=== PATIENT | male | born 1965 | race Caucasian/White ===

== ENCOUNTER 2018-03-25 21:07 | Emergency (ER) | payer OTHER ==
[~2018-03-25] VITALS: Ht 172.7 cm; Wt 72.6 kg
[~2018-03-25 21:07] MED LIST: IBUP600 PO; MECL25 PO; Robaxin-750750 MG PO
[2018-03-25] MEDS ORDERED: Hydrocodone-Ap1 EA23 PO (21:43)
[2018-03-25] MEDS ORDERED: Cyclobenzaprine5 MG PO (21:44)
[2018-03-25] MEDS ORDERED: IBUP800 PO (21:44)
[2018-03-25] MEDS ORDERED: LIDO700A20 TOP (22:18)
[2018-03-25] MEDS ORDERED: KETO10 PO (22:18)
== END 2018-03-25 22:30 | disposition home or self-care (01) ==
LOC: ER 21:07
DX: M54.42 Lumbago with sciatica, left side (principal); G89.29 Other chronic pain; Z79.899 Other long term (current) drug therapy; Z87.891 Personal history of nicotine dependence
CPT/HCPCS: 96372; 99282-25; J1885

== ENCOUNTER 2018-05-07 00:55 | Emergency (ER) | payer OTHER ==
[~2018-05-07] VITALS: Ht 172.7 cm; Wt 72.6 kg
[~2018-05-07 00:55] MED LIST changes: +Cyclobenzaprine5 MG PO; +Hydrocodone-Ap1 EA23 PO; +IBUP800 PO; +KETO10 PO; +LIDO700A20 TOP
[2018-05-07 03:20] LABS: Calcium, Ionized (POC) 1.12 mmol/L (1.10-1.46); Chloride (POC) 95 mmol/L (98-108); Creatinine (POC) 0.9 mg/dL (0.8-1.3); Glucose (ISTAT POC) 136 mg/dL (70-99); Hemoglobin (POC) 12.6 g/dL (13.5-17.5); Potassium (POC) 3.3 mmol/L (3.5-5.5); Sodium (POC) 137 mmol/L (135-148); Total CO2 (POC) 27 mmol/L (21-32)
== END 2018-05-07 04:14 | disposition home or self-care (01) ==
LOC: ER 00:55
PROVIDERS: Emergency Medicine
DX: R10.9 Unspecified abdominal pain (principal); Z87.891 Personal history of nicotine dependence
CPT/HCPCS: 36415; 74018; 80047; 85014; 99284-25

== ENCOUNTER 2018-05-07 07:27 | Day surgery (SDC) | payer OTHER ==
--- NOTE | 2018-05-07 08:05 | NUR ---
05/07/18 0805 Lorenza Mendez LATE ENTRY FOR TODAY AT 0745 [facility]. PATIENT BROUGHT BACK TO SDU AND IV ADMINISTERED. DR. YU CONTACTED AND ORDERS RECEIVED FOR ZOFRAN 4MG IV.
== END 2018-05-07 10:15 | disposition home or self-care (01) ==
LOC: ORSCSDS 07:27
DX: R10.32 Left lower quadrant pain (principal); Z53.9 Procedure and treatment not carried out, unspecified reason; K92.1 Melena
CPT/HCPCS: J0500; J2405; J2550; J7120

== ENCOUNTER 2018-06-18 10:47 | Day surgery (SDC) | payer OTHER ==
[~2018-06-18] VITALS: Ht 165.1 cm; Wt 68.0 kg
[~2018-06-18 10:47] MED LIST changes: +Bentyl20 MG PO; +CYCL10 PO; +ONDA4ODT
[2018-06-18] MEDS ORDERED: PRED1 (11:22)
--- NOTE | 2018-06-18 13:37 | NUR ---
06/18/18 Cierra Sanchez V PT IS WAITING FOR FURTHER INFORMATION FROM DR. YU REGUARDING THE MASS DISCOVERED DURING THE PROCEDURE. PT'S VSS BUT PER DR. YU'S ORDERS, PT TO REMAIN NPO AND IV IN PLACE UNTIL FURTHER NOTICE. PT IS RESTING COMFORTABLY IN BED, SIDE RAILS IN PLACE, CALL LIGHT WITHIN REACH, AND FAMILY AT BEDSIDE.
[2018-06-19] MEDS ORDERED: ACETAMINOP-CODEI5 ML PO (10:33)
== END 2018-06-18 13:50 | disposition home or self-care (01) ==
LOC: ORSCSDS 10:47
PROVIDERS: Internal Medicine Gastroenterology
PROC: 0DBN8ZX Excision of Sigmoid Colon, Via Natural or Artificial Opening Endoscopic, Diagnostic (ICD-10-PCS; principal; 2018-06-18 12:00)
DX: K92.1 Melena (principal); R10.32 Left lower quadrant pain; D12.5 Benign neoplasm of sigmoid colon; K59.00 Constipation, unspecified; I10 Essential (primary) hypertension; Z87.891 Personal history of nicotine dependence
CPT/HCPCS: 88305; J2704; J7120

== ENCOUNTER 2018-06-19 07:30 | Inpatient (IN) | payer OTHER ==
[~2018-06-19] VITALS: Ht 174 cm; Wt 67.1 kg
[~2018-06-19 07:30] MED LIST changes: +PRED1
[2018-06-19] MEDS ORDERED: ACETAMINOP-CODEI5 ML PO (10:33)
--- NOTE | 2018-06-19 12:00 | NUR ---
"DAY SURGERY RN | ADMIT No issues on admit. Family at bedside. Both doctors and experimental mechanic RN saw patient. All interventions completed."
--- NOTE | 2018-06-19 19:51 | NUR ---
SHIFT SUMMARY PT A&OX4, VSS, S/P SIG COLECTOMY, PREVENA. PAIN MANAGED WITH EPIDURAL CONTINUOUS AND BOLUS, PT UNDERSTANDS HOW TO USE BUTTON. AISSATOU CLEAR LIQ DIET. FERRER PATENT & DRAINING, STAT LOCK ON, OFF FLOOR. PLAN IS TO HOLD LOVENOX ON SATURDAY FOR EPIDURAL REMOVAL. REPORT GIVEN TO YULIET MCLAUGHLIN.
--- NOTE | 2018-06-20 04:35 | NUR ---
SUMMARY: PT IS POD1 SIGMOID COLECTOMY. PT DID WELL OVER NIGHT. VSS THIS AM, A/O. CONTINUING Q1 HR EPIDURAL CHECKS, SEE ASSESSMENTS, Q1 HR CHECKS TO END AT 1610 TODAY. PT HAS RATED PAIN 3/10 MOST OF THE NIGHT, GIVEN TORADOL X1 WHICH PT REPORTED HELPED WITH PAIN WELL. SURGICAL SITE WNL. PT TURNS WELL IN BED. DENIES N/V. NO ACUTE SAFETY CONCERNS AT THIS TIME.
[2018-06-20 04:46] LABS: BASOPHILS ABSOLUTE AUTO 0.01 K/mm3 (0.00-0.23); BASOPHILS PERCENT AUTO 0 % (0-2); EOSINOPHILS ABSOLUTE AUTO 0.02 K/mm3 (0.00-0.68); EOSINOPHILS PERCENT AUTO 0 % (0-6); Hematocrit 30.2 % (37.0-53.0); Hemoglobin 9.6 g/dL (13.5-17.5); IMMATURE GRAN ABSOLUTE AUTO 0.07 K/mm3 (0.00-0.10); IMMATURE GRAN PERCENT AUTO 1 % (0-1); LYMPHOCYTES ABSOLUTE AUTO 1.32 K/mm3 (0.84-5.20); LYMPHOCYTES PERCENT AUTO 10 % (21-46); MONOCYTES PERCENT AUTO 8 % (4-13); Mean Corpuscular HGB 28.3 pg (26.0-34.0); Mean Corpuscular HGB Conc 31.8 g/dL (31.5-36.5); Mean Corpuscular Volume 89 fL (80-100); Mean Platelet Volume 10.8 fL (9.1-12.4); NEUTROPHILS ABSOLUTE AUTO 10.82 K/mm3 (1.96-9.15); NEUTROPHILS PERCENT AUTO 81 % (41-73); Platelet Count 225 K/mm3 (150-400); RDW Coefficient Variation 13.5 % (11.7-14.2); RDW Standard Deviation 43.9 fL (35.1-46.3); Red Blood Cell Count 3.39 M/mm3 (4.30-5.90); White Blood Cell Count 13.34 K/mm3 (4.00-11.30)
[2018-06-20 05:04] LABS: Anion Gap 7 mmol/L (6-16); Blood Urea Nitrogen 10 mg/dL (8-24); Bun/Creatinine Ratio 11.3 (12.0-20.0); CO2, Blood 26 mmol/L (21-32); Calcium, Blood 8.2 mg/dL (8.5-10.1); Chloride, Blood 102 mmol/L (98-108); Creatinine, Blood 0.88 mg/dL (0.60-1.20); Glomerular Filtration Rate >60 (60-); Glucose, Blood 112 mg/dL (70-99); Potassium, Blood 4.2 mmol/L (3.5-5.5); Sodium, Blood 135 mmol/L (136-145)
--- NOTE | 2018-06-20 09:47 | NUR ---
06/20/18 0947 Oumou Iqbal VERIFICATIONS: EDIT CHART.
--- NOTE | 2018-06-20 19:08 | NUR ---
shift summary patient pleasant. moved to q4 epidural checks until 1600 06/21/18. no needed assessments at this time. no acute concerns from the patient at this time.
--- NOTE | 2018-06-21 16:51 | NUR ---
SHIFT SUMMARY PATIENT IS PLEASANT. PASSING GAS AND HAD A BOWEL MOVEMENT THIS MORNING AROUND 0400. NO ACUTE CONCERNS FROM THE PATIENT. ACCORDING TO DR. ROSA THE PATIENT IS TO HAVE HIS EPIDURAL REMOVED TOMORROW. HIS LOVENOX SHOULD BE HELD, THERE IS ALSO A NURSE NOTIFY TO REMIND US TO HOLD HIS LOVENOX 06/23/18. WILL CONTINUE TO MONITOR FOR CHANGES, PATIENT HAS BEEN UP AND WALKED THE HALLS TODAY. PATIENT STILL RATES HIS PAIN 2/10 WITH MILD ACHING. HE IS AWARE THAT HE WILL BE GETTING HIS EPIDURAL PULLED TOMORROW.
--- NOTE | 2018-06-22 06:29 | NUR ---
POD 3 S/P COLECTOMY. PT VSS T/O NIGHT. EPIDURAL SITE WNL, LEVEL OF SENSATION T10-L1. PT REP PAIN AISSATOU 1-04/13. PT AISSATOU REG PO, DENIED N/V, IS PASSING FLATUS+SMALL BM. PT AMB W/SBA, AISSATOU WELL. PLAN TO D/C EPIDURAL THIS AM. PT USING CALL LIGHT FOR ASSISTANCE, WILL CONT TO MONITOR UNITL REP GIVEN TO ONCOMING RN.
--- NOTE | 2018-06-22 17:50 | NUR ---
SHIFT SUMMARY PT A&OX4, VSS. POD3 SIG COLECTOMY, PREVENA. EPIDURAL REMOVED AT 1000, FERRER REMOVED AT 1530, STILL AWAITING VOID. PAIN MANAGED WITH 5 MG NORCO. AISSATOU PO, DENIES N&V. PASSING FLATUS, DENIES BM THIS SHIFT. AMB W/FWW HALLWAYS, UP TO CHAIR T/O SHIFT, SHOWERED TODAY. WCTM & TX PER EMAR UNTIL REPORT GIVEN TO ONCOMING NOC RN.
--- NOTE | 2018-06-23 05:29 | NUR ---
POD 4 S/P COLECTOMY. PT VSS T/O NIGHT. PAIN MGD W/1 NORCO W/REP RELIEF. PT AISSATOU REG PO, RE PPASSING FLATUS AND BM, IS VOIDING URINE W/O DIFFICULTY. PT AMB INDEP, AISSATOU WELL. PLAN TO D/C HOME TODAY. WILL CONT TO MONITOR UNTIL REP GIVEN TO ONCOMING RN.
[2018-06-23] MEDS ORDERED: Norco 5-325 Ta1 EACH PO (11:11)
--- NOTE | 2018-06-23 12:47 | NUR ---
DISCHARGE: PT DC TO HOME AT THIS TIME WITH FAMILY. IV DC'D WNL. VERBALIZED UNDERSTANDING OF INSTRUCTIONS, FOLLOW UP, PROBLEMS TO REPORT AND MEDICATIONS. SCRIPT GIVEN. PT LEFT VIA WHEELCHAIR TO CAR WITH BELONGINGS.
== END 2018-06-23 12:40 | disposition home or self-care (01) | DRG 331 ==
LOC: SURS 08:27
PROVIDERS: ADMIT Surgery
PROC: 0DTN0ZZ Resection of Sigmoid Colon, Open Approach (ICD-10-PCS; principal; 2018-06-19 11:30)
DX: K63.9 Disease of intestine, unspecified (principal); R10.32 Left lower quadrant pain; K59.00 Constipation, unspecified; Z87.891 Personal history of nicotine dependence
CPT/HCPCS: 36415; 80048; 82378; 85025; A9270-GY; J0295; J0330; J1650; J1885; J2250; J2704; J3010; J7120; V2790

== ENCOUNTER 2018-07-14 06:03 | Day surgery (SDC) | payer OTHER ==
[~2018-07-14] VITALS: Ht 170.2 cm; Wt 68.7 kg
[~2018-07-14 06:03] MED LIST changes: +ACETAMINOP-CODEI5 ML PO; +Bentyl10 MG PO; +MIRALAX17 GM PO; +Norco 5-325 Ta1 EACH PO; +ONDA4ODT MM; +[UNRECOGNIZED DRUG - OTHER] PO
--- NOTE | 2018-07-14 06:51 | NUR ---
Ambulatory in Day Surgery. Surgical site prepped with 2% Chlorhexidine cloth wipe. History, Chart, Medications and Allergies reviewed before start of procedure. Lungs clear T/O to Auscultation. Patient confirms NPO status and agrees with scheduled surgery. Pre-Op teaching done. Pt verbalizes understanding. Patient States Post-Procedure ride home has been arranged.
--- NOTE | 2018-07-14 09:19 | NUR ---
PATIENT GAVE PERMISSION FOR ME TO CARE FOR HIM TODAY 07/14/18. Discharge instructions reviewed with patient. Patient verbalizes understanding. Copy given to patient to take home. Dressing to procedure site clean, dry, intact with no visible drainage, swelling, erythema or bruising noted. Patient States Post-Procedure ride home has been arranged. Discharged via wheelchair to private car for ride home. NOTIFIED SURGEON THAT NO PAIN MEDICATION HAD BEEN ORDERED FOR DISCHARGE. PATIENT STATES HE IS OKAY WITH TAKING CURRENT MEDICATIONS AT HOME FOR PAIN CONTROL.
--- NOTE | 2018-07-14 10:46 | NUR ---
STUDENT RN ASSISTING WITH PREOPERATIVE CARE. AGREE WITH HER CHARTING AND CARE
== END 2018-07-14 23:04 | disposition home or self-care (01) ==
LOC: ORSCMMR 06:03 → ORD 07:30 → ORSCMMR 07:30
PROVIDERS: Surgery
PROC: 05HM33Z Insertion of Infusion Device into Right Internal Jugular Vein, Percutaneous Approach (ICD-10-PCS; principal; 2018-07-14 07:30)
PROC: B5131ZA Fluoroscopy of Right Jugular Veins using Low Osmolar Contrast, Guidance (ICD-10-PCS; principal; 2018-07-14 07:30)
DX: C18.7 Malignant neoplasm of sigmoid colon (principal); Z79.899 Other long term (current) drug therapy
CPT/HCPCS: 77001; C1788; J0690; J1100; J1642; J2250; J2405; J2704; J3010; J7120

== ENCOUNTER 2019-08-11 07:10 | Day surgery (SDC) | payer OTHER ==
[~2019-08-11] VITALS: Ht 172.7 cm; Wt 70.3 kg
== END 2019-08-11 09:31 | disposition home or self-care (01) ==
LOC: ORSCSDS 07:10
PROVIDERS: Surgery
PROC: 0DJD8ZZ Inspection of Lower Intestinal Tract, Via Natural or Artificial Opening Endoscopic (ICD-10-PCS; principal; 2019-08-11 08:30)
DX: Z12.11 Encounter for screening for malignant neoplasm of colon (principal); Z85.038 Personal history of other malignant neoplasm of large intestine; Z87.891 Personal history of nicotine dependence; Z79.899 Other long term (current) drug therapy
CPT/HCPCS: J2704; J7120

== ENCOUNTER 2020-09-22 19:55 | Emergency (ER) | payer OTHER ==
[~2020-09-22] VITALS: Ht 172.7 cm; Wt 74.8 kg
[2020-09-22] MEDS ORDERED: IBU800 MG PO (20:41)
== END 2020-09-22 20:52 | disposition home or self-care (01) ==
LOC: ER 19:55
DX: S63.92XA Sprain of unspecified part of left wrist and hand, initial encounter (principal); Z79.899 Other long term (current) drug therapy; Z87.891 Personal history of nicotine dependence; W23.0XXA Caught, crushed, jammed, or pinched between moving objects, initial encounter
CPT/HCPCS: 29125; 73130; 99283-25

== ENCOUNTER 2022-12-16 05:22 | Emergency (ER) | payer OTHER ==
[~2022-12-16] VITALS: Ht 175.3 cm; Wt 74.8 kg
[~2022-12-16 05:22] MED LIST changes: +IBU800 MG PO
[2022-12-16 05:48] LABS: BASOPHILS ABSOLUTE AUTO 0.02 K/mm3 (0.00-0.23); BASOPHILS PERCENT AUTO 0 % (0-2); EOSINOPHILS ABSOLUTE AUTO 0.13 K/mm3 (0.00-0.68); EOSINOPHILS PERCENT AUTO 2 % (0-6); Hemoglobin 13.4 g/dL (13.5-17.5); IMMATURE GRAN ABSOLUTE AUTO 0.03 K/mm3 (0.00-0.10); IMMATURE GRAN PERCENT AUTO 0 % (0-1); LYMPHOCYTES ABSOLUTE AUTO 2.43 K/mm3 (0.84-5.20); LYMPHOCYTES PERCENT AUTO 29 % (21-46); MONOCYTES ABSOLUTE AUTO 0.58 K/mm3 (0.16-1.47); MONOCYTES PERCENT AUTO 7 % (4-13); Mean Corpuscular HGB 30.4 pg (26.0-34.0); Mean Corpuscular HGB Conc 34.4 g/dL (31.5-36.5); Mean Corpuscular Volume 88 fL (80-100); Mean Platelet Volume 11.3 fL (9.1-12.4); NEUTROPHILS ABSOLUTE AUTO 5.19 K/mm3 (1.96-9.15); NEUTROPHILS PERCENT AUTO 62 % (41-73); Platelet Count 216 K/mm3 (150-400); RDW Coefficient Variation 11.9 % (11.7-14.2); RDW Standard Deviation 38.5 fL (35.1-46.3); Red Blood Cell Count 4.41 M/mm3 (4.30-5.90); White Blood Cell Count 8.38 K/mm3 (4.00-11.30)
[2022-12-16 06:02] LABS: Albumin, Blood 4.1 g/dL (3.4-5.0); Albumin/Globulin Ratio 1.1 (0.8-1.8); Bilirubin, Total 0.3 mg/dL (0.1-1.0); Bun/Creatinine Ratio 16.2 (12.0-20.0); Calcium, Blood 10.2 mg/dL (8.5-10.1); Creatinine, Blood 1.17 mg/dL (0.60-1.20); Globulin, Blood 3.6 g/dL (2.2-4.0); Potassium, Blood 3.7 mmol/L (3.5-5.5); Total Protein, Blood 7.7 g/dL (6.4-8.2)
[2022-12-16] MEDS ORDERED: OMEP20ER PO (07:46)
[2022-12-16] MEDS ORDERED: MIRALAX17 GM PO (07:46)
[2022-12-16 08:00] VITALS: BP 120/66
== END 2022-12-16 08:07 | disposition home or self-care (01) ==
LOC: ER 05:22
PROVIDERS: Student in an Organized Health Care Education/Training Program
DX: K21.9 Gastro-esophageal reflux disease without esophagitis (principal); K59.00 Constipation, unspecified; Z79.899 Other long term (current) drug therapy; Z87.891 Personal history of nicotine dependence
CPT/HCPCS: 74177; 80053; 83690; 84484; 85025; 93005; 93010; 99284-25; Q9967

== ENCOUNTER 2023-10-23 16:46 | Emergency (ER) | payer OTHER ==
[~2023-10-23] VITALS: Ht 175.3 cm; Wt 69.4 kg
[2023-10-23 22:24] VITALS: BP 111/60
[2023-10-23] MEDS ORDERED: NS 1,000 ML IV SCH (22:35)
[2023-10-23] MEDS ORDERED: MIRALAX17 GM PO (22:39)
== END 2023-10-23 22:52 | disposition home or self-care (01) ==
LOC: ER 16:46
DX: R11.0 Nausea (principal); K21.9 Gastro-esophageal reflux disease without esophagitis; Z87.891 Personal history of nicotine dependence; Z91.040 Latex allergy status
CPT/HCPCS: 74177; 99284-25; Q9967

== ENCOUNTER → 2023-10-23 | Outpatient (CLI) | payer OTHER ==
[~2023-10-23] MED LIST changes: +OMEP20ER PO
[2023-10-23 15:03] LABS: BASOPHILS ABSOLUTE AUTO 0.05 K/mm3 (0.00-0.23); BASOPHILS PERCENT AUTO 0 % (0-2); EOSINOPHILS ABSOLUTE AUTO 0.05 K/mm3 (0.00-0.68); EOSINOPHILS PERCENT AUTO 0 % (0-6); Hematocrit 40.5 % (37.0-53.0); Hemoglobin 13.8 g/dL (13.5-17.5); IMMATURE GRAN ABSOLUTE AUTO 0.06 K/mm3 (0.00-0.10); IMMATURE GRAN PERCENT AUTO 0 % (0-1); LYMPHOCYTES ABSOLUTE AUTO 0.61 K/mm3 (0.84-5.20); LYMPHOCYTES PERCENT AUTO 4 % (21-46); MONOCYTES ABSOLUTE AUTO 1.37 K/mm3 (0.16-1.47); MONOCYTES PERCENT AUTO 9 % (4-13); Mean Corpuscular HGB 31.2 pg (26.0-34.0); Mean Corpuscular HGB Conc 34.1 g/dL (31.5-36.5); Mean Corpuscular Volume 91 fL (80-100); NEUTROPHILS ABSOLUTE AUTO 13.93 K/mm3 (1.96-9.15); NEUTROPHILS PERCENT AUTO 87 % (41-73); Platelet Count 192 K/mm3 (150-400); RDW Coefficient Variation 11.9 % (11.7-14.2); Red Blood Cell Count 4.43 M/mm3 (4.30-5.90); White Blood Cell Count 16.07 K/mm3 (4.00-11.30)
[2023-10-23 15:15] LABS: Albumin, Blood 3.6 g/dL (3.4-5.0); Albumin/Globulin Ratio 0.8 (0.8-1.8); Bilirubin, Total 0.5 mg/dL (0.1-1.0); Bun/Creatinine Ratio 11.6 (12.0-20.0); Creatinine, Blood 1.21 mg/dL (0.60-1.20); Globulin, Blood 4.4 g/dL (2.2-4.0); Potassium, Blood 3.8 mmol/L (3.5-5.5)
== END | disposition home or self-care (01) ==
LOC: LAB SHORT 14:57 → LAB 14:57
PROVIDERS: Physician Assistant
DX: R10.9 Unspecified abdominal pain (principal)
CPT/HCPCS: 80053; 83690; 85025

== ENCOUNTER 2025-02-02 21:45 | Emergency (ER) | payer OTHER ==
[~2025-02-02] VITALS: Ht 175.3 cm; Wt 70.3 kg
[2025-02-02] MEDS ORDERED: Mirtazapine15 M1 PO (22:20)
[2025-02-02 22:26] LABS: BASOPHILS ABSOLUTE AUTO 0.01 K/mm3 (0.00-0.23); BASOPHILS PERCENT AUTO 0 % (0-2); EOSINOPHILS ABSOLUTE AUTO 0.03 K/mm3 (0.00-0.68); EOSINOPHILS PERCENT AUTO 0 % (0-6); Hematocrit 41.2 % (37.0-53.0); Hemoglobin 14.0 g/dL (13.5-17.5); IMMATURE GRAN ABSOLUTE AUTO 0.02 K/mm3 (0.00-0.10); IMMATURE GRAN PERCENT AUTO 0 % (0-1); LYMPHOCYTES ABSOLUTE AUTO 2.09 K/mm3 (0.84-5.20); LYMPHOCYTES PERCENT AUTO 30 % (21-46); MONOCYTES ABSOLUTE AUTO 0.74 K/mm3 (0.16-1.47); MONOCYTES PERCENT AUTO 11 % (4-13); Mean Corpuscular HGB Conc 34.0 g/dL (31.5-36.5); Mean Corpuscular Volume 94 fL (80-100); NEUTROPHILS ABSOLUTE AUTO 4.02 K/mm3 (1.96-9.15); NEUTROPHILS PERCENT AUTO 58 % (41-73); NRBC ABSOLUTE 0.00 K/mm3 (0.00-0.02); NRBC Auto 0.0 /100 WBC (0.0-0.2); Platelet Count 238 K/mm3 (150-400); RDW Coefficient Variation 12.3 % (11.7-14.2); RDW Standard Deviation 42.9 fL (35.1-46.3)
[2025-02-02 23:08] LABS: Alanine Aminotransfer (ALT/SGP 29.0 U/L (12-78); Albumin, Blood 3.9 g/dL (3.4-5.0); Albumin/Globulin Ratio 1.1 (0.8-1.8); Anion Gap 13.0 mmol/L (3-11); Aspartate Aminotrans (AST/SGOT 43.0 U/L (12-37); Bilirubin, Total 0.5 mg/dL (0.1-1.0); Blood Urea Nitrogen 11.0 mg/dL (8-24); CO2, Blood 22.0 mmol/L (21-32); Calcium, Blood 8.7 mg/dL (8.5-10.1); Chloride, Blood 107.0 mmol/L (98-108); Creatinine, Blood 0.92 mg/dL (0.60-1.20); Globulin, Blood 3.6 g/dL (2.2-4.0); Glucose, Blood 115.0 mg/dL (70-99); Potassium, Blood 3.9 mmol/L (3.5-5.5); Sodium, Blood 138.0 mmol/L (136-145); Total Protein, Blood 7.5 g/dL (6.4-8.2)
[2025-02-02 23:56] VITALS: BP 99/63
== END 2025-02-02 23:59 | disposition home or self-care (01) ==
LOC: ER 21:45
PROVIDERS: Emergency Medicine
DX: R07.89 Other chest pain (principal); K21.9 Gastro-esophageal reflux disease without esophagitis; Z87.891 Personal history of nicotine dependence; Z79.899 Other long term (current) drug therapy
CPT/HCPCS: 71046; 80053; 84484; 85025; 85379; 93005; 93010; 99285-25